=== PATIENT | female | born 1950 | race Caucasian/White ===

== ENCOUNTER → 2016-09-16 | Outpatient (CLI) | payer MEDICARE, OTHER ==
[~2016-09-16] MED LIST: CALCIUM 600 +1 EAC6 PO; DIOVAN320 MG PO; LIPITOR40 MG PO; LODINE400 MG PO; LUTEIN20 MG PO; OMEPRAZOLE40 MG PO; TYLENOL WITH C1 EACH PO
== END | disposition disaster alternative care site (69) ==
LOC: GPOC 09-11 14:00
PROC: 0G9H3ZX Drainage of Right Thyroid Gland Lobe, Percutaneous Approach, Diagnostic (ICD-10-PCS; principal; 2016-09-16)
DX: E04.1 Nontoxic single thyroid nodule (principal)

== ENCOUNTER → 2016-10-05 | Day surgery (SDC) | payer MEDICARE, OTHER ==
[~2016-10-05] VITALS: Ht 170.2 cm; Wt 56.0 kg
--- NOTE | ~2016-10-05 | OR ---
PATIENT'S NAME: NANO GARCIA [facility] AGE: 66 Y [address] ROOM: [place] [id number] LOCATION: [facility] – [place] ADMIT DATE: 10/05/2016 OR/Procedure Report DISCHARGE DATE: FAMILY PHYSICIAN: Adán Gasca MD ATTENDING PHYSICIAN: Fermin Tate V SURGEON: Fermin Tate MD MEAL GRINDER TENDER: Dr. Hector Hernandez 5. 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 POSTOPERATIVE DIAGNOSIS: Excision of basal carcinoma of the right pentecostalism. PROCEDURE REFORMED: 1. Bilobed excision of basal carcinoma of the pentecostalism measuring 5 x 3.5 cm. 2. Partial thickness skin graft taken from the right preauricular skin. ANESTHESIA: Monitored anesthesia care. BLOOD LOSS: 10 mL. SPECIMENS REMOVED: 1. Bilobed excision of basal carcinoma of the right pentecostalism. 2. Reexcision of the inferior margin. INDICATIONS: Nano Garcia is a 66-year-old female with a history of basal carcinoma of the right pentecostalism. 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 She is here today for excision and reconstruction. DESCRIPTION OF PROCEDURE: The patient was seen in the preoperative holding area. A verbal and written consent was obtained from the patient for bilobed excision of the basal carcinoma with either a local tissue flap rearrangement for closure versus partial-thickness skin graft. After full knowledge, risks, benefits and alternatives the patient wished to proceed. The patient was taken to the operating room and placed on the operating room table. Moderate anesthesia care was administered without any difficulty. We began by marking our incision with 5 mm margins and infiltrating this with 1% lidocaine with 1:100,000 parts epinephrine. The patient was then prepped and draped in normal sterile fashion. We then used a #15 blade to incise our premarked incision in the right pentecostalism area and down to the subcutaneous fat. We elevated the subcutaneous fat layer. The specimen was marked and passed off for frozen section analysis. There was a positive margin and inferior margin and a re- excision was performed in the inferior margin, which was negative by frozen section. With this, the wound was now 5 x 3.5 cm and with our best to perform PATIENT'S NAME: NANO GARCIA [facility] AGE: 66 Y [address] ROOM: [place] [id number] LOCATION: [facility] – [place] ADMIT DATE: 10/05/2016 OR/Procedure Report DISCHARGE DATE: FAMILY PHYSICIAN: Adán Gasca MD ATTENDING PHYSICIAN: Fermin Tate V a partial-thickness skin graft. We started by first draining the wound in order to decrease the size of the skin graft needed. We did this with a 4-0 Prolene suture. We then harvested a partial-thickness skin graft from the right preauricular skin after infiltrating this with 1% lidocaine with 100,000 parts of epinephrine. The skin graft was incised with a #15 blade and elevated out of the wound bed in a fat down plane. We then trimmed the skin graft down to the papillary dermis on the back table. Now, it is ready for inset in to the wound bed. We secured the skin graft into the wound bed using a 6-0 nylon in an interrupted fashion. We then performed some pie crusting and tacking sutures of the skin graft down to the wound bed. We then placed Adaptic and a bolster sponge on top of the skin graft and secured this with 4-0 nylon suture. We then closed our donor site skin graft. We undermined the skin using scissors. We then closed the deep layer with 4-0 Vicryl suture in a buried interrupted fashion and then closed the skin with a 6-0 nylon in a running locking fashion. Dictated by Hector Hernandez MD, HO5, for Fermin Tate MD FERMIN TATE MD TVC/modl /[id number] d: 10/05/162211 t: 10/15/16 1844, OPERATIVE SUMMARY
--- NOTE | 2016-10-05 11:32 | NUR ---
one iv attempt made per romeo villegas
== END | disposition disaster alternative care site (69) ==
LOC: GSDC 07:00
PROC: 0HR1X74 Replacement of Face Skin with Autologous Tissue Substitute, Partial Thickness, External Approach (ICD-10-PCS; principal; 2016-10-05)
DX: C44.319 Basal cell carcinoma of skin of other parts of face (principal); G43.909 Migraine, unspecified, not intractable, without status migrainosus; M19.90 Unspecified osteoarthritis, unspecified site; K21.9 Gastro-esophageal reflux disease without esophagitis; E78.00 Pure hypercholesterolemia, unspecified; M81.0 Age-related osteoporosis without current pathological fracture; E78.5 Hyperlipidemia, unspecified; I11.9 Hypertensive heart disease without heart failure; Z98.890 Other specified postprocedural states; Z79.899 Other long term (current) drug therapy; Z88.0 Allergy status to penicillin; Z91.013 Allergy to seafood
CPT/HCPCS: J2001; J7030